=== PATIENT | male | born 1965 | race Caucasian/White ===

== ENCOUNTER 2021-09-27 12:29 | Inpatient (IN) | payer OTHER ==
[~2021-09-27] VITALS: Ht 160 cm; Wt 94.3 kg
[2021-09-27] MEDS ORDERED: SODIUM CHLORIDE 0.9% 1,000 ML IV ONE (12:45)
[2021-09-27] MEDS ORDERED: LEVETIRACETAM 1000MG PREMIX 100 ML IV ONE (12:45)
[2021-09-27 13:13] LABS: BASOPHILS % 0.5 % (0.0-2.0); EOSINOPHILS % 0.7 % (0.0-5.0); HEMATOCRIT. 47.2 % (42.0-52.0); HEMOGLOBIN. 15.4 g/dL (14.0-18.0); LYMPHOCYTES % 32.4 % (20.0-50.0); MEAN CORPUSCULAR HEMOGLOBIN 30.1 pg (28.0-32.0); MEAN CORPUSCULAR VOLUME 92.4 fL (80.0-94.0); MEAN PLATELET VOLUME 9.7 fl (7.4-10.4); MONOCYTES % 7.6 % (2.0-8.0); NEUTROPHILS % 58.8 % (40.0-76.0); PLATELET 205 x1000/uL (130-400); RED BLOOD CELL COUNT 5.12 mill/uL (4.7-6.1); RED CELL DISTRIBUTION WIDTH 14.5 % (11.6-14.6)
[2021-09-27 13:21] LABS: CHLORIDE 101 mEq/L (98-107)
[2021-09-27 13:49] LABS: ETHANOL BLOOD < 10 mg/dL
[2021-09-27] MEDS ORDERED: LEVETIRACETAM 1000MG PREMIX 100 ML IV NR (15:00)
[2021-09-27] MEDS: LACTULOSE 20G/30ML UDC PO ONE ×2 (16:13→16:22)
[2021-09-27 20:00] VITALS: BP 140/72
[2021-09-27] MEDS ORDERED: ONDANSETRON HCL 4MG/2ML INJ IV PRN (20:15)
[2021-09-27] MEDS ORDERED: ACETAMINOPHEN 325MG TABLET PO PRN (20:15)
[2021-09-27] MEDS ORDERED: CLONIDINE 0.1MG TABLET PO PRN (20:15)
[2021-09-27 20:18] LABS: CLARITY URINE TURBID (CLEAR); COLOR URINE YELLOW (YELLOW); KETONES URINE 1+ (NEGATIVE); LEUKOCYTE ESTERASE URINE 1+ (NEGATIVE); NITRITE URINE NEGATIVE (NEGATIVE); OCCULT BLOOD URINE 3+ (NEGATIVE); PH URINE 5.5 (4.5-8.0); PROTEIN URINE 2+ (NEGATIVE); SPECIFIC GRAVITY URINE 1.021 (1.005-1.030)
[2021-09-27 20:36] LABS: *AMPHETAMINES SCREEN URINE NEGATIVE (NEGATIVE); *BARBITURATES SCREEN URINE NEGATIVE (NEGATIVE); *BENZODIAZEPINES SCREEN URINE NEGATIVE (NEGATIVE); *COCAINE SCREEN URINE NEGATIVE (NEGATIVE); CANNABINOID URINE SCREEN NEGATIVE (NEGATIVE); METHADONE URINE SCREEN NEGATIVE (NEGATIVE); OPIATES URINE SCREEN NEGATIVE (NEGATIVE); PHENCYCLIDINE URINE SCREEN NEGATIVE (NEGATIVE)
[2021-09-27] MEDS: SODIUM CHLORIDE 0.45% 1,000 ML IV SCH (21:08)
[2021-09-27 21:30] VITALS: BP 140/72
[2021-09-27] MEDS: METOPROLOL TARTRATE 25MG TABLET PO SCH (21:30)
[2021-09-27] MEDS: AMLODIPINE 10MG TABLET PO SCH (21:30)
[2021-09-27] MEDS: LORAZEPAM 2MG/ML CPJ IV PRN (22:15)
[2021-09-28] VITALS: BP 159/94
[2021-09-28] MEDS: LORAZEPAM 2MG/ML CPJ IV PRN (03:50)
[2021-09-28 04:30] VITALS: BP 125/82
[2021-09-28 08:00] VITALS: BP 131/88
[2021-09-28] MEDS: METOPROLOL TARTRATE 25MG TABLET PO SCH ×2 (08:50→21:24)
[2021-09-28] MEDS: AMLODIPINE 10MG TABLET PO SCH (08:50)
[2021-09-28] MEDS ORDERED: LORAZEPAM 2MG/ML CPJ IV PRN (10:30)
[2021-09-28] MEDS: LACTULOSE 20G/30ML UDC PO SCH ×3 (11:26→21:24)
[2021-09-28] MEDS: LEVETIRACETAM 500MG TABLET PO SCH ×2 (11:26→21:24)
[2021-09-28] MEDS: SODIUM CHLORIDE 0.45% 1,000 ML IV SCH ×2 (11:27→21:36)
[2021-09-28 12:00] VITALS: BP 123/35
[2021-09-28] MEDS ORDERED: DEXTROSE 50% WATER 50ML SYRINGE IV PRN (12:15)
[2021-09-28] MEDS: ENOXAPARIN 30MG/0.3ML SYR SUBCUT SCH ×2 (12:25→21:24)
[2021-09-28] MEDS: INSULIN LISPRO 100 UNITS/ML SUBCUT SCH ×3 (12:30→21:37)
[2021-09-28] MEDS: BLOOD SUGAR DIAGNOSTIC STRIP TEST SCH ×3 (12:31→21:24)
[2021-09-28] MEDS ORDERED: LACTULOSE 20G/30ML UDC PO SCH (14:00)
[2021-09-28 16:00] VITALS: BP 127/62
[2021-09-28 16:13] LABS: BASOPHILS % 0.5 % (0.0-2.0); EOSINOPHILS % 0.9 % (0.0-5.0); HEMATOCRIT. 45.2 % (42.0-52.0); HEMOGLOBIN. 14.8 g/dL (14.0-18.0); LYMPHOCYTES % 29.3 % (20.0-50.0); MEAN CORPUSCULAR HEMOGLOBIN 29.9 pg (28.0-32.0); MEAN CORPUSCULAR VOLUME 91.6 fL (80.0-94.0); MONOCYTES % 9.7 % (2.0-8.0); NEUTROPHILS % 59.6 % (40.0-76.0); PLATELET 185 x1000/uL (130-400); RED BLOOD CELL COUNT 4.93 mill/uL (4.7-6.1); RED CELL DISTRIBUTION WIDTH 14.2 % (11.6-14.6)
[2021-09-28 16:33] LABS: CHLORIDE 104 mEq/L (98-107)
[2021-09-28 16:40] LABS: CREATINE KINASE 760 IU/L (39-308); HDL CHOLESTEROL 81 mg/dL (40-59); LDL CHOLESTEROL 114 mg/dL (5-100)
[2021-09-28 20:00] VITALS: BP 143/79
[2021-09-29] VITALS: BP 134/80
[2021-09-29] MEDS: THIAMINE HCL 500 MG in SODIUM CHLORIDE 0.9% 95 ML IV SCH ×5 (01:56→18:31)
[2021-09-29 04:00] VITALS: BP 116/67
[2021-09-29] MEDS: LACTULOSE 20G/30ML UDC PO SCH ×3 (06:21→13:48)
[2021-09-29] MEDS: BLOOD SUGAR DIAGNOSTIC STRIP TEST SCH ×3 (06:21→17:10)
[2021-09-29] MEDS: INSULIN LISPRO 100 UNITS/ML SUBCUT SCH ×3 (06:24→17:40)
[2021-09-29 08:00] VITALS: BP 136/95
[2021-09-29] MEDS: ASPIRIN 81MG TABLET PO SCH ×2 (09:00→11:45)
[2021-09-29] MEDS: AMLODIPINE 10MG TABLET PO SCH (09:00)
[2021-09-29] MEDS: CYANOCOBALAMIN/FA/PYRIDOXINE TABLET PO SCH ×2 (09:00→12:12)
[2021-09-29] MEDS: ENOXAPARIN 30MG/0.3ML SYR SUBCUT SCH ×2 (09:00→11:44)
[2021-09-29] MEDS: METOPROLOL TARTRATE 25MG TABLET PO SCH ×2 (09:00→11:46)
[2021-09-29 12:00] VITALS: BP 134/88
[2021-09-29] MEDS: SODIUM CHLORIDE 0.45% 1,000 ML IV SCH (12:12)
[2021-09-29 16:00] VITALS: BP 132/58
[2021-09-29] MEDS ORDERED: METFORMIN HCL 500MG TABLET PO SCH (17:40)
[2021-09-29 19:15] VITALS: BP 132/58
[2021-09-29] MEDS ORDERED: ATORVASTATIN CALCIUM 40MG TABLET PO SCH (21:00)
== END 2021-09-29 20:10 | disposition home or self-care (01) | DRG 100 ==
LOC: ER 13:18 → 8WST 18:03 → EDBEDREQ 18:08 → EDBEDREQTM 18:08 → ENRESERV 20:00
PROVIDERS: ADMIT Hospitalist; ATTEND Hospitalist
DX: G40.909 Epilepsy, unspecified, not intractable, without status epilepticus (principal); I63.9 Cerebral infarction, unspecified; G92.8 Other toxic encephalopathy; E72.20 Disorder of urea cycle metabolism, unspecified; F10.239 Alcohol dependence with withdrawal, unspecified; I10 Essential (primary) hypertension; E87.5 Hyperkalemia; E78.00 Pure hypercholesterolemia, unspecified; E11.65 Type 2 diabetes mellitus with hyperglycemia; E78.5 Hyperlipidemia, unspecified
CPT/HCPCS: 36415; 70551; 71045; 80053; 80061; 80305; 80320; 81003; 82140; 82550; 82962; 83036; 83605; 84484; 85025; 93005; 93880; 99291; J1650; J1815; J1953; J2060; J3411; J7030; J7050; G0480